=== PATIENT | female | born 1935 | race Caucasian/White ===

== ENCOUNTER 2018-06-01 00:03 | Inpatient (IN) | payer MEDICARE, BC ==
[~2018-06-01] VITALS: Ht 157.5 cm; Wt 44.9 kg
[2018-06-01] MEDS ORDERED: IV NORMAL SALINE 1000 ML BAG IV ONE (00:30)
[2018-06-01] MEDS ORDERED: BIMA2.5D5 EACHEYE (00:36)
[2018-06-01] MEDS ORDERED: CYAN10009 PO (00:36)
[2018-06-01] MEDS ORDERED: LEVO50TA66 PO (00:36)
[2018-06-01] MEDS ORDERED: MULT1TAB73 PO (00:36)
[2018-06-01] MEDS ORDERED: CHOL10002 PO (00:36)
[2018-06-01] MEDS ORDERED: OMEG-166 PO (00:36)
[2018-06-01] MEDS ORDERED: BRIN10DR EACHEYE (00:36)
[2018-06-01] MEDS ORDERED: CALCIUM PLUS D PO (00:36)
--- NOTE | 2018-06-01 00:45 | NUR ---
Pt. BIB [facility] for near syncopal episode w/ AMS at the time of episode, presents w/ resolved 01/16 R side abdominal pain, A/Ox3, abd. s/r/nd/nt, BS active x4, family at bedside w/ pt., in for MSE, denies N/V/D/F/C/CP/GREGORIO, hx of apendicitis, Addendum: 06/01/18 at 0052 by BKAHMET hx of apendectomy
--- NOTE | 2018-06-01 00:53 | NUR ---
Pt. taken off unit for CT
[2018-06-01 00:54] LABS: BASOPHILS # (AUTO) 0.2 K/uL (0.0-8.0); EOSINOPHILS # (AUTO) 0.1 K/uL (0.0-0.7); EOSINOPHILS % (AUTO) 0.5 % (0.0-7.0); MONOCYTES # (AUTO) 1.1 K/uL (2.0-10.0)
[2018-06-01 00:55] LABS: BASOPHILS % (AUTO) 1.3 % (0.0-2.0); HEMATOCRIT 22.6 % (31.2-41.9); HEMOGLOBIN 7.5 g/dL (10.9-14.3); LYMPHOCYTES # (AUTO) 2.1 K/uL (20.0-40.0); LYMPHOCYTES % (AUTO) 13.7 % (20.5-51.5); MEAN CORPUSCULAR HGB CONC 33 g/dL (32.3-35.6); MEAN CORPUSCULAR VOLUME 87.6 fL (75.5-95.3); MONOCYTES % (AUTO) 6.8 % (0.0-11.0); NEUTROPHILS # (AUTO) 12.2 K/uL (1.8-8.9); NEUTROPHILS % (AUTO) 77.7 % (38.5-71.5); PLATELET COUNT (AUTO) 642 K/uL (179-408); RED BLOOD CELL COUNT(AUTO) 2.58 MIL/uL (3.63-4.92); WHITE BLOOD COUNT (AUTO) 15.7 K/uL (3.8-11.8)
[2018-06-01 01:05] LABS: CARBON DIOXIDE 22 mmol/L (21-32); CHLORIDE 102 mmol/L (98-107); CREATININE 1.4 mg/dL (0.6-1.3); GLUCOSE 155 mg/dL (74-106); POTASSIUM 3.4 mmol/L (3.5-5.1); UREA NITROGEN, BLOOD 18 mg/dL (7-18)
[2018-06-01 01:10] LABS: ALANINE AMINOTRANSFERASE 87 U/L (14-59); ALKALINE PHOSPHATASE 762 U/L (50-136); ASPARTATE AMINOTRANSFERASE 85 U/L (15-37); BILIRUBIN,DIRECT 0.1 mg/dL (0.0-0.2); BILIRUBIN,TOTAL 0.3 mg/dL (0.2-1.0); LIPASE 293 U/L (73-393); TOTAL PROTEIN, SERUM 6.8 g/dL (6.4-8.2)
[2018-06-01 01:25] LABS: *BILIRUBIN,URIN NEGATIVE (NEGATIVE); *BLOOD, URINE Trace-lysed (NEGATIVE); *CLARITY,URINE CLEAR (CLEAR); *COLOR,URINE YELLOW (YELLOW); *KETONES,URINE NEGATIVE (NEGATIVE); *PROTEIN,URINE TRACE (NEGATIVE); *UROBILINOGEN,URINE 0.2 E.U./dl (NORMAL); LEUKOCYTE ESTERASE ,URINE TRACE (NEGATIVE); NITRITE, URINE NEGATIVE (NEGATIVE); UGLUCOSE NEGATIVE (NEGATIVE)
[2018-06-01 01:32] LABS: BACTERIA,URINE MODERATE /HPF (NONE SEEN); SQUAMOUS EPITHELIAL CELL,UR MANY /HPF (NONE SEEN)
--- NOTE | 2018-06-01 01:46 | NUR ---
Per [facility] Front Desk Agent no bed available for admission upstairs until 0600, pt. resting in bed, no acute distress,
--- NOTE | 2018-06-01 02:24 | NUR ---
NEHEMIAH GOETZ on phone with Dr Lozano from [employer] for panel call.
[2018-06-01] MEDS ORDERED: PIPERACILLIN SODIUM/TAZOBACTAM 3.375 G in IV DEXTROSE 5% 50 ML IV ONE (02:30)
[2018-06-01] MEDS ORDERED: PIPERACILLIN/TAZOBACTAM/D5W 50 ML IV ONE (02:47)
--- NOTE | 2018-06-01 03:03 | NUR ---
Left wrist IV removed due to pain/redness to site.
--- NOTE | 2018-06-01 04:35 | NUR ---
Pt. resting in bed, no acute distress, VSS, will continue to monitor, all needs met,
--- NOTE | 2018-06-01 05:40 | NUR ---
Spoke to Chani nuclear waste process operator, per Chani " The patient can be taken upstairs to inpatient unit, and bedside report can be given to the inpatient RN".
--- NOTE | 2018-06-01 05:51 | NUR ---
Report given to inpatient RnDean. Pt. admitted to Telemetry , under care of Dr. Sun. Dx: Near Syncope. Belongs List completed
[2018-06-01 06:28] VITALS: BP 153/62
[2018-06-01 11:12] VITALS: BP 130/58
[2018-06-01] MEDS ORDERED: PIPERACILLIN/TAZOBACTAM/D5W 3.375 G in PREMIXED 1 EACH IV SCH (12:00)
[2018-06-01 12:36] LABS: IRON, SERUM 19 ug/dL (50-175)
[2018-06-01] MEDS ORDERED: SWABABLE VALVE TRANSFER SET EA MC ONE (12:58)
[2018-06-01] MEDS ORDERED: IV NORMAL SALINE 250 ML IV ONE (12:58)
[2018-06-01] MEDS ORDERED: IOHEXOL 300MG/ML 100 ML INFUS..BTL ONE (12:58)
[2018-06-01] MEDS: PIPERACILLIN/TAZOBACTAM/D5W 3.375 G in PREMIXED 1 EACH IV SCH ×2 (14:00→22:24)
[2018-06-01] MEDS: IV D5/ 0.9% NACL 1,000 ML IV PRN (14:19)
[2018-06-01 15:04] VITALS: BP 153/60
[2018-06-01] MEDS: POTASSIUM CHLORIDE 50 ML IV SCH ×2 (16:16→17:04)
--- NOTE | 2018-06-01 19:30 | NUR ---
RECEIVED PATIENT IN BED ALERT ORIENTED, NO SOB NO CHEST PAIN, TELE MONITOR SINUS RYHTHM AT THIS TIME. PATIENT HAS PAIN CAUSING ELEVATED BP WILL MEDICATE FOR PAIN.
[2018-06-01] MEDS: KETOROLAC TROMETHAMINE 15 MG INJ IVP PRN (19:38)
[2018-06-01 19:40] VITALS: BP 167/70
[2018-06-01 19:49] VITALS: BP 148/63
[2018-06-01 20:00] VITALS: BP 148/63
--- NOTE | 2018-06-01 20:00 | NUR ---
PATIENT PICKED UP BY [facility] FOR MRI TEST AT [facility]. IN FAIR STABLE CONDITION.
--- NOTE | 2018-06-01 21:45 | NUR ---
PATIENT IS BACK FROM MRI TEST IN FAIR STABLE CONDITION. DAUGHTER AT BEDSIDE.
[2018-06-01] MEDS ORDERED: BIMATOPROST 0.01% OPHT DROP 2.5 ML BOTTLE EACHEYE SCH (23:15)
--- NOTE | 2018-06-01 23:20 | NUR ---
DAUGHTER REQUEST TO CONT ALL PO HOME MEDICATIONS, DR. BREN HUANG OKEYED ONLY THE EYE GTTS MEDICATIONS, ALL PO MEDS ON HOLD AT THIS TIME, PATIENT NPO.
[2018-06-02] VITALS (11 sets, daily range): BP systolic 120–170; BP diastolic 44–87
[2018-06-02] MEDS: BRINZOLAMIDE 1% OPHT DROP 10 ML BOTTLE EACHEYE SCH ×2 (00:10→08:33)
[2018-06-02] MEDS: PIPERACILLIN/TAZOBACTAM/D5W 3.375 G in PREMIXED 1 EACH IV SCH ×3 (05:34→21:23)
[2018-06-02] MEDS: IV D5/ 0.9% NACL 1,000 ML IV PRN ×2 (06:06→11:26)
--- NOTE | 2018-06-02 06:24 | NUR ---
PATIENT SLEPT MOST OF THE NIGHT NO SOB NO CHEST PAIN NOTED, ON TELE MONITOR SINUS RHYTHM ON 70'S, NO FURTHER COMPLAIN OF PAIN AT THIS TIME, REMAINS NPO AT THIS TIME. PATIENT WENT FOR NUCLEAR MEDICINE TEST, KEPT CLEAN AND DRY, TURN REPOSITION, CALL LIGHT WITHIN REACH.
[2018-06-02 06:31] LABS: BASOPHILS # (AUTO) 0.1 K/uL (0.0-8.0); BASOPHILS % (AUTO) 0.5 % (0.0-2.0); EOSINOPHILS # (AUTO) 0.2 K/uL (0.0-0.7); HEMATOCRIT 21.7 % (31.2-41.9); LYMPHOCYTES # (AUTO) 2.6 K/uL (20.0-40.0); LYMPHOCYTES % (AUTO) 21.4 % (20.5-51.5); MEAN CORPUSCULAR HEMOGLOBIN 29.4 uug (24.7-32.8); MEAN CORPUSCULAR HGB CONC 33 g/dL (32.3-35.6); MEAN CORPUSCULAR VOLUME 90.2 fL (75.5-95.3); MONOCYTES # (AUTO) 0.9 K/uL (2.0-10.0); MONOCYTES % (AUTO) 7.6 % (0.0-11.0); NEUTROPHILS # (AUTO) 8.2 K/uL (1.8-8.9); NEUTROPHILS % (AUTO) 68.5 % (38.5-71.5); PLATELET COUNT (AUTO) 640 K/uL (179-408)
[2018-06-02 06:37] LABS: RED BLOOD CELL COUNT(AUTO) 2.41 MIL/uL (3.63-4.92)
[2018-06-02 06:38] LABS: HEMOGLOBIN 7.1 g/dL (10.9-14.3)
[2018-06-02 06:49] LABS: ALANINE AMINOTRANSFERASE 46 U/L (14-59); ALKALINE PHOSPHATASE 571 U/L (50-136); ASPARTATE AMINOTRANSFERASE 24 U/L (15-37); BILIRUBIN,TOTAL 0.5 mg/dL (0.2-1.0); CARBON DIOXIDE 25 mmol/L (21-32); CHLORIDE 106 mmol/L (98-107); CREATININE 1.3 mg/dL (0.6-1.3); GLUCOSE 96 mg/dL (74-106); MAGNESIUM 1.8 mg/dL (1.8-2.4); PHOSPHOROUS 4.3 mg/dL (2.5-4.9); POTASSIUM 4.1 mmol/L (3.5-5.1); TOTAL PROTEIN, SERUM 6.3 g/dL (6.4-8.2); UREA NITROGEN, BLOOD 14 mg/dL (7-18)
--- NOTE | 2018-06-02 07:15 | NUR ---
PATIENT ALBUMIN LEVEL 1.5 CALLED [facility] AND WILIAM CERNA IS RECORD SEARCHER, WAITING FOR RESPONSE, ENDORSED TO NEXT SHIFT.
[2018-06-02 07:29] LABS: FERRITIN 1403 ng/mL (8-252)
--- NOTE | 2018-06-02 07:30 | NUR ---
dr panchito riggs called back regarding low albumin and low hgb no new orders
[2018-06-02] MEDS ORDERED: EPOETIN ALFA 20,000 UNIT/ML ML SQ ONE (10:45)
[2018-06-02] MEDS ORDERED: EPOETIN ALFA 10,000 UNITS/ML VIAL SQ ONE (11:45)
--- NOTE | 2018-06-02 12:00 | NUR ---
SEEN BY DMETRY NOTED LOW HH AND LOW ALBUMIN WITH ORDERS. WILL GIVE EPOGEN THEN CHECK HH AT 1800
--- NOTE | 2018-06-02 13:00 | NUR ---
seen by dr banegas for cardio follow-up and manager multicultural RE: RENAL CELL CA SEE NOTES
[2018-06-02] MEDS: LISINOPRIL 5 MG TABLET PO SCH (13:18)
[2018-06-02] MEDS: DORZOLAMIDE 2% OPHT DROP 10 ML BOTTLE EACHEYE SCH ×2 (13:18→17:23)
--- NOTE | 2018-06-02 15:41 | NUR ---
DAUGHTER AT BEDSIDE SPOKE WITH ALL MD"S ON DUTY, VERY SATISFIED WITH CARE. AGREED BLOOD TRANSFUSION PLAN PENDING HH RESULTS. STARTED ON REGULAR DIET PT TOLERATED WELL
--- NOTE | 2018-06-02 19:20 | NUR ---
Received patient lying in bed. AAOX4. In no acute distress. Denies any pain or SOB at this time. NSR on tele at 86/min. IV site on LFA intact and patent. IVF infusing. Son at bedside. Needs assessed and attended to. Safety measure initiated and call murillo within reach.
[2018-06-02] MEDS: LATANOPROST OPHT DROP 2.5 ML BOTTLE OP SCH (20:23)
--- NOTE | 2018-06-02 21:22 | NUR ---
Place another IV site on right FA #20 gauge.
--- NOTE | 2018-06-02 23:00 | NUR ---
Electrical Design Engineer tried to draw blood x2 but no success, will try again in AM per Luann.
[2018-06-02 23:18] LABS: *OCCULT BLOOD STOOL NEGATIVE (NEGATIVE)
[2018-06-03] VITALS (8 sets, daily range): BP systolic 132–156; BP diastolic 49–66
[2018-06-03] MEDS: PIPERACILLIN/TAZOBACTAM/D5W 3.375 G in PREMIXED 1 EACH IV SCH ×3 (05:08→21:09)
[2018-06-03] MEDS: LEVOTHYROXINE SODIUM 50 MCG TABLET PO SCH (06:02)
--- NOTE | 2018-06-03 06:20 | NUR ---
AAOX4. In no acute distress. NSR on tele at 79/min. IV site on RFA and LFA intact and patent. IVF infusing. No adverse reaction noted from IV ABX. Needs assessed and attended to. Safety measure maintained and call murillo within reach.
[2018-06-03 06:49] LABS: BASOPHILS # (AUTO) 0.1 K/uL (0.0-8.0); EOSINOPHILS # (AUTO) 0.2 K/uL (0.0-0.7); LYMPHOCYTES # (AUTO) 3.8 K/uL (20.0-40.0); MEAN CORPUSCULAR VOLUME 90.5 fL (75.5-95.3); MONOCYTES # (AUTO) 0.9 K/uL (2.0-10.0); MONOCYTES % (AUTO) 7.5 % (0.0-11.0)
[2018-06-03 06:52] LABS: CARBON DIOXIDE 23 mmol/L (21-32); CHLORIDE 105 mmol/L (98-107); CREATININE 1.3 mg/dL (0.6-1.3); GLUCOSE 99 mg/dL (74-106); POTASSIUM 3.7 mmol/L (3.5-5.1); UREA NITROGEN, BLOOD 16 mg/dL (7-18)
[2018-06-03 06:58] LABS: BASOPHILS % (AUTO) 1.2 % (0.0-2.0); EOSINOPHILS % (AUTO) 1.5 % (0.0-7.0); LYMPHOCYTES % (AUTO) 30.8 % (20.5-51.5); MEAN CORPUSCULAR HEMOGLOBIN 29.7 uug (24.7-32.8); MEAN CORPUSCULAR HGB CONC 33 g/dL (32.3-35.6); NEUTROPHILS # (AUTO) 7.3 K/uL (1.8-8.9); PLATELET COUNT (AUTO) 574 K/uL (179-408); WHITE BLOOD COUNT (AUTO) 12.4 K/uL (3.8-11.8)
[2018-06-03 07:05] LABS: RED BLOOD CELL COUNT(AUTO) 2.29 MIL/uL (3.63-4.92)
[2018-06-03 07:07] LABS: HEMATOCRIT 20.7 % (31.2-41.9); HEMOGLOBIN 6.8 g/dL (10.9-14.3)
[2018-06-03] MEDS: MULTIVITAMINS,THERAPEUTIC TABLET PO SCH (08:49)
[2018-06-03] MEDS: CHOLECALCIFEROL 1,000 UNIT TABLET PO SCH (08:49)
[2018-06-03] MEDS: OMEGA-3 FATTY ACIDS/FISH OIL CAPSULE PO SCH (08:49)
[2018-06-03] MEDS: CYANOCOBALAMIN 1,000 MCG TABLET PO SCH (08:49)
[2018-06-03] MEDS: LISINOPRIL 5 MG TABLET PO SCH ×2 (08:50→09:02)
[2018-06-03] MEDS: DORZOLAMIDE 2% OPHT DROP 10 ML BOTTLE EACHEYE SCH ×3 (08:52→17:05)
[2018-06-03] MEDS: IV D5/ 0.9% NACL 1,000 ML IV PRN (08:57)
[2018-06-03] MEDS ORDERED: Medication Not On Formulary EA (Multivitamins (Multivitamin) 1 EACH) PO SCH (09:00)
--- NOTE | 2018-06-03 09:10 | NUR ---
PATIENT IS AX0 X4, PATIENT SIGNED CONSENT FOR 1 UNIT OF BLOOD TRANSFUSION.
[2018-06-03 10:12] LABS: LYMPHOCYTES % (MANUAL) 27 % (20-40); MONOCYTES % (MANUAL) 7 % (2-10); MYELOCYTES % 1 % (0-0); NEUTROPHILS % (MANUAL) 65 % (42-75)
--- NOTE | 2018-06-03 10:15 | NUR ---
BLOOD TRANSFUSION STARTED ON R FOREARM, BLOOD TRANSFUSION PROTOCOL FOLLOWED. SECOND RN WITNESSED.
--- NOTE | 2018-06-03 10:30 | NUR ---
ASSESSED PATIENT AFTER INITIATING BLOOD TRANSFUSION. 15 MINUTE VITAL CHECK, WNL. PATIENT HAS NO S/S OF ADVERSE REACTION TO PRODUCT. WILL CONTINUE TO MONITOR HOURLY UNTIL 1 UNIT OF BLOOD IS FULLY INFUSED.
--- NOTE | 2018-06-03 11:30 | NUR ---
VITAL CHECK 1 HOUR AFTER INITIATING BLOOD TRANSFUSION. PATIENT IS A+O, NO ADVERSE SIGNS OR SYMPTOMS NOTED.
--- NOTE | 2018-06-03 13:07 | NUR ---
PATIENT HAS RECEIVED 1 UNIT OF BLOOD, FULLY INFUSED. REASSESSED VITAL SIGNS, WNL. PATIENT IS A+O X4. NO ADVERSE REACTION NOTED.
--- NOTE | 2018-06-03 19:20 | NUR ---
Received patient lying in bed. AAOX4. In no acute distress. Denies any pain or SOB at this time. IV site on RFA and LFA intact and patent. IVF infusing on LFA. Daughter Grisel at bedside. Needs assessed and attended to. Safety measure initiated and call murillo within reach.
[2018-06-03] MEDS: LATANOPROST OPHT DROP 2.5 ML BOTTLE OP SCH (20:31)
[2018-06-04] VITALS (8 sets, daily range): BP systolic 136–177; BP diastolic 61–76
[2018-06-04] MEDS: IV D5/ 0.9% NACL 1,000 ML IV PRN ×2 (02:27→16:59)
[2018-06-04] MEDS: PIPERACILLIN/TAZOBACTAM/D5W 3.375 G in PREMIXED 1 EACH IV SCH ×3 (05:10→21:02)
[2018-06-04] MEDS: LEVOTHYROXINE SODIUM 50 MCG TABLET PO SCH (06:02)
--- NOTE | 2018-06-04 06:09 | NUR ---
Slept well last night. Remains AAOX4. In no acute distress. IV site on RFA and LFA remains intact and patent. IVF infusing. No adverse reaction noted from IV ABX. Needs assessed and attended to. Safety measure maintained and call murillo within reach.
[2018-06-04 06:38] LABS: BASOPHILS # (AUTO) 0.1 K/uL (0.0-8.0); BASOPHILS % (AUTO) 0.5 % (0.0-2.0); EOSINOPHILS # (AUTO) 0.3 K/uL (0.0-0.7); HEMATOCRIT 22.8 % (31.2-41.9); LYMPHOCYTES % (AUTO) 29.8 % (20.5-51.5); MEAN CORPUSCULAR HEMOGLOBIN 28.8 uug (24.7-32.8); MEAN CORPUSCULAR HGB CONC 32 g/dL (32.3-35.6); MEAN CORPUSCULAR VOLUME 89.2 fL (75.5-95.3); MONOCYTES % (AUTO) 7.3 % (0.0-11.0); NEUTROPHILS # (AUTO) 8.1 K/uL (1.8-8.9); NEUTROPHILS % (AUTO) 60.4 % (38.5-71.5); PLATELET COUNT (AUTO) 527 K/uL (179-408); RED BLOOD CELL COUNT(AUTO) 2.56 MIL/uL (3.63-4.92); WHITE BLOOD COUNT (AUTO) 13.4 K/uL (3.8-11.8)
[2018-06-04 06:44] LABS: HEMOGLOBIN 7.4 g/dL (10.9-14.3)
[2018-06-04 06:50] LABS: CARBON DIOXIDE 20 mmol/L (21-32); CHLORIDE 110 mmol/L (98-107); CREATININE 1.3 mg/dL (0.6-1.3); UREA NITROGEN, BLOOD 12 mg/dL (7-18)
[2018-06-04 06:51] LABS: GLUCOSE 361 mg/dL (74-106)
--- NOTE | 2018-06-04 06:53 | NUR ---
Call from life insurance actuary Yovani and reported critical lab value for glucose 361. Endorse to Day shift nurse Dariana.
[2018-06-04 07:09] LABS: A/G RATIO 0.6 (0.7-1.7); ALPHA-1-GLOBULIN 0.5 g/dL (0.0-0.4); ALPHA-2-GLOBULIN 1.3 g/dL (0.4-1.0); BETA GLOBULIN 0.9 g/dL (0.7-1.3); GAMMA GLOBULIN 0.8 g/dL (0.4-1.8); GLOBULIN, TOTAL 3.6 g/dL (2.2-3.9); M-SPIKE Not Observed g/dL (Not Observed)
[2018-06-04] MEDS: MULTIVITAMINS,THERAPEUTIC TABLET PO SCH (08:04)
[2018-06-04] MEDS: OMEGA-3 FATTY ACIDS/FISH OIL CAPSULE PO SCH (08:04)
[2018-06-04] MEDS: LISINOPRIL 5 MG TABLET PO SCH (08:04)
[2018-06-04] MEDS: CHOLECALCIFEROL 1,000 UNIT TABLET PO SCH (08:04)
[2018-06-04] MEDS: CYANOCOBALAMIN 1,000 MCG TABLET PO SCH (08:04)
[2018-06-04] MEDS: DORZOLAMIDE 2% OPHT DROP 10 ML BOTTLE EACHEYE SCH ×3 (08:17→16:24)
[2018-06-04] MEDS ORDERED: DEXTROSE 50% 50 ML DISP.SYRIN IV PRN (10:00)
[2018-06-04] MEDS ORDERED: INSULIN REGULAR, HUMAN 300 UNIT/3 ML VIAL SQ PRN (10:00)
[2018-06-04 11:06] LABS: IMMUNOGLOBULIN A, SERUM 106 mg/dL (64-422); IMMUNOGLOBULIN M, SERUM 35 mg/dL (26-217)
[2018-06-04] MEDS: BLOOD SUGAR DIAGNOSTIC 1 EACH STRIP VI SCH ×3 (11:13→20:51)
[2018-06-04] MEDS: POTASSIUM CHLORIDE 20 MEQ TAB.PRT.SR PO SCH ×3 (12:03→20:39)
--- NOTE | 2018-06-04 15:24 | NUR ---
one unit prbc given per md orders.no ar noted.
[2018-06-04] MEDS: LATANOPROST OPHT DROP 2.5 ML BOTTLE OP SCH (20:39)
[2018-06-04] MEDS ORDERED: CLONIDINE HCL 0.2 MG TABLET PO ONE (21:45)
[2018-06-04] MEDS ORDERED: CLONIDINE HCL 0.1 MG TABLET PO PRN (21:45)
[2018-06-04] MEDS ORDERED: IV NS 1000 ML 1,000 ML IV SCH (22:00)
[2018-06-04] MEDS: KETOROLAC TROMETHAMINE 15 MG INJ IVP PRN (22:58)
[2018-06-04] MEDS ORDERED: hydrALAZINE HCL 10 MG TABLET PO ONE (23:15)
--- NOTE | 2018-06-05 01:09 | NUR ---
Patients BP was 183/78 and HR 85. Made call to MD with orders for Catapres 0.2mg x1 and Hydralazine 10mg x1 now and 0.1 Catapres Q6H PRN for SBP >160. Also to discontinue D5ns.
[2018-06-05 06:27] VITALS: BP 143/48
[2018-06-05 06:53] LABS: CARBON DIOXIDE 21 mmol/L (21-32); CHLORIDE 111 mmol/L (98-107); CREATININE 1.4 mg/dL (0.6-1.3); GLUCOSE 74 mg/dL (74-106); POTASSIUM 4.4 mmol/L (3.5-5.1); UREA NITROGEN, BLOOD 14 mg/dL (7-18)
[2018-06-05] MEDS: BLOOD SUGAR DIAGNOSTIC 1 EACH STRIP VI SCH ×2 (06:55→10:51)
[2018-06-05] MEDS: LEVOTHYROXINE SODIUM 50 MCG TABLET PO SCH (06:55)
[2018-06-05 07:06] LABS: BASOPHILS # (AUTO) 0.1 K/uL (0.0-8.0); BASOPHILS % (AUTO) 0.7 % (0.0-2.0); EOSINOPHILS # (AUTO) 0.4 K/uL (0.0-0.7); EOSINOPHILS % (AUTO) 2.6 % (0.0-7.0); MEAN CORPUSCULAR HEMOGLOBIN 29.7 uug (24.7-32.8); MEAN CORPUSCULAR HGB CONC 33 g/dL (32.3-35.6); MEAN CORPUSCULAR VOLUME 90.6 fL (75.5-95.3); MONOCYTES # (AUTO) 1.1 K/uL (2.0-10.0); MONOCYTES % (AUTO) 8.1 % (0.0-11.0); NEUTROPHILS # (AUTO) 8.3 K/uL (1.8-8.9); NEUTROPHILS % (AUTO) 59.6 % (38.5-71.5); PLATELET COUNT (AUTO) 516 K/uL (179-408); RED BLOOD CELL COUNT(AUTO) 3.35 MIL/uL (3.63-4.92)
[2018-06-05 07:33] LABS: HEMATOCRIT 30.3 % (31.2-41.9); HEMOGLOBIN 9.9 g/dL (10.9-14.3)
[2018-06-05] MEDS: CHOLECALCIFEROL 1,000 UNIT TABLET PO SCH (08:14)
[2018-06-05] MEDS: LISINOPRIL 5 MG TABLET PO SCH (08:14)
[2018-06-05] MEDS: OMEGA-3 FATTY ACIDS/FISH OIL CAPSULE PO SCH (08:14)
[2018-06-05] MEDS: MULTIVITAMINS,THERAPEUTIC TABLET PO SCH (08:14)
[2018-06-05] MEDS: CYANOCOBALAMIN 1,000 MCG TABLET PO SCH (08:14)
[2018-06-05] MEDS: DORZOLAMIDE 2% OPHT DROP 10 ML BOTTLE EACHEYE SCH ×2 (08:50→12:10)
[2018-06-05] MEDS ORDERED: [UNRECOGNIZED DRUG - OTHER] PO SCH ×2 (09:00)
[2018-06-05] MEDS ORDERED: AMOXICILLIN-CLAVUL 500-125MG TABLET PO SCH (09:15)
[2018-06-05] MEDS ORDERED: INFLUENZA VACCINE 2018-2019 0.5 ML DISP.SYRIN IM ONE (10:08)
[2018-06-05] MEDS ORDERED: AMOX-427 PO (10:10)
[2018-06-05 11:19] VITALS: BP 127/47
--- NOTE | 2018-06-05 13:00 | NUR ---
d/c orders received noted and carried out,d/c heplock per md orders,d/c instruction and education given to the pt,pt left the facility via private car in stable condition
[2018-06-08 04:05] LABS: *IMMUNOGLOBULIN G, SERUM 1081 mg/dL (700-1600)
== END 2018-06-05 13:00 | disposition home health service (06) | DRG 686 ==
LOC: EDBD 00:06 → ER 00:06 → TELE 05:42 → MED 06-03 13:20
PROVIDERS: ADMIT Internal Medicine
PROC: 30233N1 Transfusion of Nonautologous Red Blood Cells into Peripheral Vein, Percutaneous Approach (ICD-10-PCS; principal; 2018-06-03)
DX: C64.2 Malignant neoplasm of left kidney, except renal pelvis (principal); E43 Unspecified severe protein-calorie malnutrition; M48.56XA Collapsed vertebra, not elsewhere classified, lumbar region, initial encounter for fracture; D68.69 Other thrombophilia; J90 Pleural effusion, not elsewhere classified; Z68.1 Body mass index [BMI] 19.9 or less, adult; J98.11 Atelectasis; N39.0 Urinary tract infection, site not specified; D50.9 Iron deficiency anemia, unspecified; I08.1 Rheumatic disorders of both mitral and tricuspid valves; E03.9 Hypothyroidism, unspecified; K57.30 Diverticulosis of large intestine without perforation or abscess without bleeding; Z90.49 Acquired absence of other specified parts of digestive tract; M48.07 Spinal stenosis, lumbosacral region; M48.061 Spinal stenosis, lumbar region without neurogenic claudication; E87.6 Hypokalemia; I51.7 Cardiomegaly; M47.816 Spondylosis without myelopathy or radiculopathy, lumbar region; E53.8 Deficiency of other specified B group vitamins; R74.0 Nonspecific elevation of levels of transaminase and lactic acid dehydrogenase [LDH]; D47.3 Essential (hemorrhagic) thrombocythemia; M85.80 Other specified disorders of bone density and structure, unspecified site; R16.0 Hepatomegaly, not elsewhere classified; G89.3 Neoplasm related pain (acute) (chronic); R55 Syncope and collapse
CPT/HCPCS: 36415; 70030-TC; 70450; 71045; 71250; 72148; 74181; 78445; 82747; 82784; 83550; 83605; 83615; 83690; 83735; 84100; 84155; 84165; 84443; 85014; 85025; 85730; 86334; 86850; 86900; 86901; 86920; 87040; 87086; 90686; 93005; 93307; 97110; 97116; 97530; A4663; A9537; G0378; J0885; J1815; J1885; J2543; J3480; J3490; J7030; J7040; J7042; J7050; P9016-BL; P9021; Q9967

== ENCOUNTER 2018-06-16 22:26 | Inpatient (IN) | payer MEDICARE, BC ==
[~2018-06-16] VITALS: Ht 157.5 cm; Wt 45.5 kg
[~2018-06-16 22:26] MED LIST: AMOX-427 PO; BIMA2.5D5 EACHEYE; BRIN10DR EACHEYE; CALCIUM PLUS D PO; CHOL10002 PO; CYAN10009 PO; LEVO50TA66 PO; MULT1TAB73 PO; OMEG-166 PO
--- NOTE | 2018-06-16 22:30 | NUR ---
PT BIB [facility], C/C AMS. PT IS A/OX1, UNABLE TO ANSWER QUESTIONS ADEQUATELY. PER PARAMEDICS, PT TOOK A NEW PRESCRIPTION OF TRAMADOL AND BACLOFEN AND WHEN FAMILY GOT HOME, NOTICED SHE WAS "SPACING OUT". PT IS A POOR HISTORIAN, UNABLE TO RECALL HOW MUCH OF EACH MEDICATION SHE TOOK. PT PRESENTS W/ HTN 206/100, ER MD AWARE. PT DOES NOT APPEAR TO BE IN ANY APPARENT DISTRESS AT THIS TIME. DECK SUPERVISOR EQUAL BILATERAL UE, SMILE EQUAL, PERRLA.
--- NOTE | 2018-06-16 22:56 | NUR ---
NEHEMIAH GOETZ AT BEDSIDE FOR MSE. PT TAKEN TO RADIOLOGY FOR CT SCAN.
--- NOTE | 2018-06-16 23:20 | NUR ---
PT BACK IN ER FROM RADIOLOGY.
[2018-06-16 23:42] LABS: BASOPHILS # (AUTO) 0.2 K/uL (0.0-8.0); BASOPHILS % (AUTO) 1.2 % (0.0-2.0); EOSINOPHILS # (AUTO) 0.1 K/uL (0.0-0.7); EOSINOPHILS % (AUTO) 0.5 % (0.0-7.0); HEMOGLOBIN 10.4 g/dL (10.9-14.3); LYMPHOCYTES # (AUTO) 4.2 K/uL (20.0-40.0); LYMPHOCYTES % (AUTO) 27.9 % (20.5-51.5); MEAN CORPUSCULAR HEMOGLOBIN 29.2 uug (24.7-32.8); MEAN CORPUSCULAR HGB CONC 33 g/dL (32.3-35.6); MEAN CORPUSCULAR VOLUME 89.4 fL (75.5-95.3); MONOCYTES # (AUTO) 0.9 K/uL (2.0-10.0); NEUTROPHILS # (AUTO) 9.6 K/uL (1.8-8.9); NEUTROPHILS % (AUTO) 64.4 % (38.5-71.5); PLATELET COUNT (AUTO) 651 K/uL (179-408); RED BLOOD CELL COUNT(AUTO) 3.58 MIL/uL (3.63-4.92); WHITE BLOOD COUNT (AUTO) 14.9 K/uL (3.8-11.8)
[2018-06-17 00:08] LABS: ETHANOL < 3 MG/DL (0-0)
[2018-06-17 00:09] LABS: CARBON DIOXIDE 25 mmol/L (21-32); CHLORIDE 102 mmol/L (98-107); GLUCOSE 111 mg/dL (74-106); POTASSIUM 3.4 mmol/L (3.5-5.1); UREA NITROGEN, BLOOD 18 mg/dL (7-18)
[2018-06-17 00:10] LABS: THYROID STIMULATING HORMONE 4.617 mIU/mL (0.358-3.740)
[2018-06-17 00:13] LABS: ALANINE AMINOTRANSFERASE 27 U/L (14-59); ALKALINE PHOSPHATASE 641 U/L (50-136); ASPARTATE AMINOTRANSFERASE 17 U/L (15-37); BILIRUBIN,DIRECT 0.2 mg/dL (0.0-0.2); BILIRUBIN,TOTAL 0.5 mg/dL (0.2-1.0)
[2018-06-17 00:16] LABS: *BILIRUBIN,URIN NEGATIVE (NEGATIVE); *BLOOD, URINE Trace-intact (NEGATIVE); *CLARITY,URINE CLEAR (CLEAR); *COLOR,URINE YELLOW (YELLOW); *KETONES,URINE NEGATIVE (NEGATIVE); *UROBILINOGEN,URINE 0.2 E.U./dl (NORMAL); LEUKOCYTE ESTERASE ,URINE NEGATIVE (NEGATIVE); NITRITE, URINE NEGATIVE (NEGATIVE); UGLUCOSE NEGATIVE (NEGATIVE)
[2018-06-17 00:18] LABS: ACETAMINOPHEN < 2.0 ug/mL (10-30)
--- NOTE | 2018-06-17 00:30 | NUR ---
Unable to reconcile medication at this time due to unavailable information
[2018-06-17 00:34] LABS: *AMPHETAMINE, URINE NEGATIVE (NEGATIVE); *BARBITURATE, URINE NEGATIVE (NEGATIVE); *CANNABINOID, URINE NEGATIVE (NEGATIVE); *COCCAINE, URINE NEGATIVE (NEGATIVE); *OPIATE, URINE NEGATIVE (NEGATIVE); *PHENCYCLIDINE SCREEN,URINE NEGATIVE (NEGATIVE)
--- NOTE | 2018-06-17 00:34 | NUR ---
ER SPEAKING W/ DR. HUANG RE PT'S ADMISSION.
[2018-06-17 00:35] LABS: BACTERIA,URINE NONE SEEN /HPF (NONE SEEN); SQUAMOUS EPITHELIAL CELL,UR FEW /HPF (NONE SEEN); WBC,URINE 0-3 /HPF (0-3)
[2018-06-17] MEDS ORDERED: hydrALAZINE HCL 20 MG/1 ML VIAL ONE (00:55)
[2018-06-17] MEDS ORDERED: ONDANSETRON 4 MG/2 ML VIAL IV PRN (01:00)
[2018-06-17] MEDS ORDERED: Z GUARD REMEDY PASTE 57 GM TUBE TOP PRN (01:00)
[2018-06-17] MEDS ORDERED: hydrALAZINE HCL 20 MG/1 ML VIAL IV ONE (01:00)
[2018-06-17] MEDS ORDERED: ACETAMINOPHEN 325 MG TABLET PO PRN (01:00)
[2018-06-17] MEDS ORDERED: MAGNESIUM HYDROXIDE 30 ML LIQUID UDC PO PRN (01:00)
--- NOTE | 2018-06-17 01:24 | NUR ---
GAVE ADMITTING REPORT TO AMANDA CARR.
--- NOTE | 2018-06-17 01:54 | NUR ---
Pt. admitted to TELE 208, under care of Dr. HUANG. Belongs List completed
--- NOTE | 2018-06-17 02:00 | NUR ---
Admitted a 83yrs. old female with Diagnosis of AMS. Patient AAOx2, forgetful. Able to answer some simple questions. Accompanied by daughter Linda and Son Dimas and answered some of the questions for this nurse. Patient on no acute distress. Denies any pain or SOB at this time. NSR on tele at 84/min. IV site on left wrist intact and patent. Bonner catheter intact and draining via gravity. Routine admission care done. Plan of care initiated. Safety measure initiated and call murillo within reach.
[2018-06-17 02:15] VITALS: BP 147/58
[2018-06-17 04:00] VITALS: BP 164/78
[2018-06-17 05:56] LABS: BASOPHILS # (AUTO) 0.1 K/uL (0.0-8.0); BASOPHILS % (AUTO) 0.6 % (0.0-2.0); EOSINOPHILS % (AUTO) 0.1 % (0.0-7.0); HEMATOCRIT 30.8 % (31.2-41.9); HEMOGLOBIN 10.3 g/dL (10.9-14.3); LYMPHOCYTES # (AUTO) 2.5 K/uL (20.0-40.0); LYMPHOCYTES % (AUTO) 18.2 % (20.5-51.5); MEAN CORPUSCULAR HEMOGLOBIN 29.7 uug (24.7-32.8); MEAN CORPUSCULAR HGB CONC 34 g/dL (32.3-35.6); MEAN CORPUSCULAR VOLUME 88.6 fL (75.5-95.3); MONOCYTES # (AUTO) 0.7 K/uL (2.0-10.0); MONOCYTES % (AUTO) 5.2 % (0.0-11.0); NEUTROPHILS # (AUTO) 10.5 K/uL (1.8-8.9); NEUTROPHILS % (AUTO) 75.9 % (38.5-71.5); PLATELET COUNT (AUTO) 659 K/uL (179-408); RED BLOOD CELL COUNT(AUTO) 3.48 MIL/uL (3.63-4.92); WHITE BLOOD COUNT (AUTO) 13.9 K/uL (3.8-11.8)
[2018-06-17] MEDS: PANTOPRAZOLE SODIUM 40 MG TABLET.DR PO SCH (06:01)
--- NOTE | 2018-06-17 06:19 | NUR ---
Patient slept after admission. In no acute distress. Denies any pain or SOB. No nausea or vomiting. IV site on left wrist intact and patent. NSR on tele at 85/min. Cristobal catheter remains intact and draining via gravity. Clear yellow urine output noted on cristobal bag. Needs assessed and attended to. Safety measure maintained and call murillo within reach.
[2018-06-17 06:32] LABS: CARBON DIOXIDE 28 mmol/L (21-32); CHLORIDE 104 mmol/L (98-107); CREATININE 1.1 mg/dL (0.6-1.3); GLUCOSE 110 mg/dL (74-106); MAGNESIUM 1.8 mg/dL (1.8-2.4); PHOSPHOROUS 4.6 mg/dL (2.5-4.9); POTASSIUM 3.7 mmol/L (3.5-5.1); UREA NITROGEN, BLOOD 17 mg/dL (7-18)
[2018-06-17] MEDS: LEVOTHYROXINE SODIUM 50 MCG TABLET PO SCH (06:33)
[2018-06-17 07:20] VITALS: BP 149/71
--- NOTE | 2018-06-17 07:21 | NUR ---
Recheck BP 149/71.
[2018-06-17] MEDS: CYANOCOBALAMIN 1,000 MCG TABLET PO SCH (08:34)
[2018-06-17] MEDS: CHOLECALCIFEROL 1,000 UNIT TABLET PO SCH (08:34)
[2018-06-17] MEDS: FERROUS SULFATE 325 MG TABEC PO SCH (08:35)
[2018-06-17] MEDS ORDERED: DORZOLAMIDE 2% OPHT DROP 10 ML BOTTLE OP SCH (09:00)
[2018-06-17] MEDS ORDERED: BRINZOLAMIDE 1% OPHT DROP 10 ML BOTTLE EACHEYE SCH ×2 (09:00)
--- NOTE | 2018-06-17 09:50 | NUR ---
RECEIVED PATIENT REPORT FROM DAY SHIFT NURSE ERNST PATEL.
[2018-06-17 11:09] VITALS: BP 158/72
--- NOTE | 2018-06-17 13:30 | NUR ---
ANDERSON CORPORATE DEVELOPMENT INTERN IN ROOM EVALUATING PATIENT. CALLING SON TO VERIFY SOME INFORMATION RELATED TO CONDITION AND ELEVATED WBC.
[2018-06-17 15:00] VITALS: BP 164/74
[2018-06-17] MEDS: IV NS 1000 ML 1,000 ML IV PRN (15:11)
[2018-06-17] MEDS: CEFTRIAXONE 1 G in IV DEXTROSE 5% 50 ML IV SCH (15:20)
[2018-06-17] MEDS ORDERED: BIMATOPROST 0.01% OPHT DROP 2.5 ML BOTTLE EACHEYE SCH ×2 (18:00→21:00)
--- NOTE | 2018-06-17 19:20 | NUR ---
Received patient lying in bed. Patient AAOx2, forgetful. In no acute distress. daughter Linda on bedside. Denies any pain or SOB at this time. NSR on tele at 88/min. IV site on left wrist intact and patent. IVF infusing. Bonner catheter intact and draining via gravity. Safety measure initiated and call murillo within reach.
[2018-06-17 19:50] VITALS: BP 169/65
[2018-06-17] MEDS ORDERED: LATANOPROST OPHT DROP 2.5 ML BOTTLE OP SCH (21:00)
[2018-06-17] MEDS: LATANOPROST OPHT DROP 2.5 ML BOTTLE EACHEYE SCH (21:03)
--- NOTE | 2018-06-17 21:23 | NUR ---
Check patient BP. BP on left arm 181/75, and on right arm 184/87. patient asymptomatic. Denies any pain or headache, no change in vision. MARIBETH Muse made aware. awaiting for any new order.
--- NOTE | 2018-06-17 21:52 | NUR ---
MARIBETH Muse with order to give patient Hydralazine 10mg PO once. Will carry out order. Patient daughter present and made aware of new order as well as patient and states understanding.
[2018-06-17] MEDS ORDERED: hydrALAZINE HCL 10 MG TABLET PO SCH (22:00)
[2018-06-18] VITALS (8 sets, daily range): BP systolic 127–183; BP diastolic 44–85
[2018-06-18] MEDS: AMLODIPINE 5 MG TABLET PO SCH ×2 (01:26→08:29)
--- NOTE | 2018-06-18 01:26 | NUR ---
Patient BP still 183/77. MARIBETH Muse made aware with new order for Norvasc. Order carried out.
[2018-06-18] MEDS: IV NS 1000 ML 1,000 ML IV PRN ×2 (04:31→23:29)
[2018-06-18] MEDS: PANTOPRAZOLE SODIUM 40 MG TABLET.DR PO SCH (06:12)
--- NOTE | 2018-06-18 06:25 | NUR ---
Remains AOx1-2, forgetful. In no acute distress. Denies any pain or SOB. No nausea or vomiting. IV site on left wrist intact and patent. IVF infusing. NSR on tele with PAC's at 97/min. Bonner catheter remains intact and draining via gravity. Needs assessed and attended to. Safety measure maintained and call murillo within reach.
[2018-06-18] MEDS: LEVOTHYROXINE SODIUM 50 MCG TABLET PO SCH (06:31)
[2018-06-18 06:43] LABS: BASOPHILS # (AUTO) 0.1 K/uL (0.0-8.0); BASOPHILS % (AUTO) 0.6 % (0.0-2.0); EOSINOPHILS # (AUTO) 0.1 K/uL (0.0-0.7); EOSINOPHILS % (AUTO) 0.5 % (0.0-7.0); HEMATOCRIT 31.1 % (31.2-41.9); HEMOGLOBIN 10.5 g/dL (10.9-14.3); LYMPHOCYTES # (AUTO) 4.5 K/uL (20.0-40.0); LYMPHOCYTES % (AUTO) 30.4 % (20.5-51.5); MEAN CORPUSCULAR HEMOGLOBIN 29.6 uug (24.7-32.8); MEAN CORPUSCULAR HGB CONC 34 g/dL (32.3-35.6); MEAN CORPUSCULAR VOLUME 88.2 fL (75.5-95.3); MONOCYTES # (AUTO) 0.9 K/uL (2.0-10.0); MONOCYTES % (AUTO) 6.1 % (0.0-11.0); NEUTROPHILS # (AUTO) 9.2 K/uL (1.8-8.9); NEUTROPHILS % (AUTO) 62.4 % (38.5-71.5); PLATELET COUNT (AUTO) 645 K/uL (179-408); RED BLOOD CELL COUNT(AUTO) 3.53 MIL/uL (3.63-4.92); WHITE BLOOD COUNT (AUTO) 14.8 K/uL (3.8-11.8)
[2018-06-18 06:52] LABS: CARBON DIOXIDE 27 mmol/L (21-32); CHLORIDE 103 mmol/L (98-107); CHOLESTEROL 199 mg/dL (<200); GLUCOSE 102 mg/dL (74-106); HDL CHOLESTEROL 37 mg/dL (40-60); MAGNESIUM 1.7 mg/dL (1.8-2.4); PHOSPHOROUS 3.3 mg/dL (2.5-4.9); POTASSIUM 3.4 mmol/L (3.5-5.1); TRIGLYCERIDES 81 MG/DL (30-150); UREA NITROGEN, BLOOD 16 mg/dL (7-18)
[2018-06-18 07:06] LABS: THYROID STIMULATING HORMONE 1.727 mIU/mL (0.358-3.740)
--- NOTE | 2018-06-18 07:30 | NUR ---
patient resting in bed at this time. no signs of distress. no signs of agitation. bed rest at this time. cristobal catheter in place-patent. SR on telemetry. bed in locked/low position, side rails up x2, bed alarm on, call light within reach of patient. on RA. safety measures implemented. will continue to monitor.
[2018-06-18] MEDS: CHOLECALCIFEROL 1,000 UNIT TABLET PO SCH (08:21)
[2018-06-18] MEDS: CYANOCOBALAMIN 1,000 MCG TABLET PO SCH (08:21)
[2018-06-18] MEDS: FERROUS SULFATE 325 MG TABEC PO SCH (08:21)
[2018-06-18] MEDS ORDERED: POTASSIUM CHLORIDE 20 MEQ TAB.PRT.SR PO ONE (13:30)
[2018-06-18] MEDS: MAGNESIUM SULFATE/D5W 100 ML IV SCH ×2 (14:51→16:46)
[2018-06-18] MEDS: CEFTRIAXONE 1 G in IV DEXTROSE 5% 50 ML IV SCH (16:02)
--- NOTE | 2018-06-18 17:52 | NUR ---
patient resting comfortably in bed at this time. no signs of distress. vital signs stable. no signs of agitation or altered level of consciousness. patient has been alert/oriented x2 to 3 throughout shift. compliant and pleasant. SR on tele. Electrolytes replaced. bed alarm natural history collections curator light within reach. safety measures implemented. will continue to monitor until end of shift.
[2018-06-18] MEDS: LATANOPROST OPHT DROP 2.5 ML BOTTLE EACHEYE SCH (21:59)
[2018-06-19 00:16] VITALS: BP 177/71
[2018-06-19] MEDS ORDERED: AMLODIPINE 5 MG TABLET PO ONE (00:30)
--- NOTE | 2018-06-19 00:36 | NUR ---
PMD INFORMED OF B/P 177/71, ORDERS OBTAINED
[2018-06-19 04:10] VITALS: BP 164/76
[2018-06-19 06:13] LABS: BASOPHILS # (AUTO) 0.1 K/uL (0.0-8.0); BASOPHILS % (AUTO) 0.8 % (0.0-2.0); EOSINOPHILS # (AUTO) 0.1 K/uL (0.0-0.7); EOSINOPHILS % (AUTO) 0.8 % (0.0-7.0); HEMATOCRIT 28.6 % (31.2-41.9); HEMOGLOBIN 9.6 g/dL (10.9-14.3); LYMPHOCYTES # (AUTO) 4.5 K/uL (20.0-40.0); MEAN CORPUSCULAR HEMOGLOBIN 29.7 uug (24.7-32.8); MEAN CORPUSCULAR HGB CONC 34 g/dL (32.3-35.6); MEAN CORPUSCULAR VOLUME 88.3 fL (75.5-95.3); MONOCYTES % (AUTO) 6.3 % (0.0-11.0); NEUTROPHILS # (AUTO) 10.8 K/uL (1.8-8.9); NEUTROPHILS % (AUTO) 65.1 % (38.5-71.5); PLATELET COUNT (AUTO) 522 K/uL (179-408); RED BLOOD CELL COUNT(AUTO) 3.24 MIL/uL (3.63-4.92); WHITE BLOOD COUNT (AUTO) 16.5 K/uL (3.8-11.8)
[2018-06-19] MEDS: AMLODIPINE 5 MG TABLET PO SCH ×2 (06:20→16:51)
[2018-06-19] MEDS: PANTOPRAZOLE SODIUM 40 MG TABLET.DR PO SCH (06:20)
--- NOTE | 2018-06-19 06:30 | NUR ---
NO CHANGE IN NUERO STATUS, MEDICATED FOR HTN. REMAINS IN NSR
[2018-06-19 06:44] LABS: CARBON DIOXIDE 24 mmol/L (21-32); CHLORIDE 106 mmol/L (98-107); CREATININE 1.1 mg/dL (0.6-1.3); GLUCOSE 97 mg/dL (74-106); MAGNESIUM 2.2 mg/dL (1.8-2.4); PHOSPHOROUS 2.8 mg/dL (2.5-4.9); POTASSIUM 4.1 mmol/L (3.5-5.1); UREA NITROGEN, BLOOD 17 mg/dL (7-18)
[2018-06-19] MEDS: LEVOTHYROXINE SODIUM 50 MCG TABLET PO SCH (06:48)
[2018-06-19 08:25] VITALS: BP 155/69
[2018-06-19] MEDS: CYANOCOBALAMIN 1,000 MCG TABLET PO SCH (08:26)
[2018-06-19] MEDS: CHOLECALCIFEROL 1,000 UNIT TABLET PO SCH (08:26)
[2018-06-19] MEDS: FERROUS SULFATE 325 MG TABEC PO SCH (08:26)
--- NOTE | 2018-06-19 09:33 | NUR ---
resting comfortably in bed. stable condition. continues to be hypertensive. tolerating diet well. no signs of distress. SR on tele. bed alarm on, call light within reach. will continue to monitor throughout shift.
[2018-06-19 11:03] VITALS: BP 134/67
[2018-06-19] MEDS ORDERED: METO25TA6 PO (13:38)
[2018-06-19] MEDS ORDERED: AMLO5TAB9 PO (13:38)
[2018-06-19] MEDS ORDERED: MAGN400O6 PO (13:38)
[2018-06-19] MEDS ORDERED: FERR325T28 PO (13:38)
[2018-06-19 15:20] VITALS: BP 114/60
[2018-06-19] MEDS: CEFTRIAXONE 1 G in IV DEXTROSE 5% 50 ML IV SCH (15:40)
[2018-06-19 16:51] VITALS: BP 160/76
--- NOTE | 2018-06-19 17:00 | NUR ---
PATIENT DISCHARGED AT THIS TIME IN STABLE CONDITION. NO SIGNS OF DISTRESS. BLOOD PRESSURE ELEVATED AT 160/76. ALL OVER VITAL SIGNS WNL. CALLED FACILITY TO ENSURE THAT IT WAS OKAY TO TRANSFER PATIENT. FACILITY VERBALIZED THAT IT IS OKAY TO TRANSFER PATIENT. ADMINISTERED NORVASC 5 MG PO PER MD ORDERS PRIOR TO TRANSFERRING PATIENT. THE NORVASC ADMINISTERED IS THE DOSE THAT IS SCHEDULED FOR THE NEXT DAY AT 0900. ID-BAND TAKEN OUT. TELEMETRY RETURNED. IV-DISCONNECTED. DISCHARGE PACKET COMPLETED, COPY MADE FOR PATIENT/FACILITY. PATIENT DISCHARGED FROM [facility] SAFELY WITH AMBULANCE. [facility]
== END 2018-06-19 17:00 | DRG 77 ==
LOC: ER 22:27 → TELE 06-17 01:48
PROVIDERS: ATTEND Nurse Practitioner Acute Care
DX: I67.4 Hypertensive encephalopathy (principal); G92 Toxic encephalopathy; E43 Unspecified severe protein-calorie malnutrition; Z68.1 Body mass index [BMI] 19.9 or less, adult; I16.1 Hypertensive emergency; T40.4X5A Adverse effect of other synthetic narcotics, initial encounter; Y92.019 Unspecified place in single-family (private) house as the place of occurrence of the external cause; T42.8X5A Adverse effect of antiparkinsonism drugs and other central muscle-tone depressants, initial encounter; M48.56XD Collapsed vertebra, not elsewhere classified, lumbar region, subsequent encounter for fracture with routine healing; Z90.49 Acquired absence of other specified parts of digestive tract; E87.6 Hypokalemia; D72.829 Elevated white blood cell count, unspecified; Z79.899 Other long term (current) drug therapy; I11.9 Hypertensive heart disease without heart failure; R29.701 NIHSS score 1; E03.9 Hypothyroidism, unspecified; Z79.890 Hormone replacement therapy; E05.90 Thyrotoxicosis, unspecified without thyrotoxic crisis or storm
CPT/HCPCS: 36415; 70030-TC; 70450; 71045; 80307; 83605; 83735; 84100; 84443; 85025; 85730; 87040; 87086; 93005; 97116; 97530; A4663; G0378; G0480; G0480-TC; J0360; J0696; J3475; J7030; J7060

== ENCOUNTER 2018-09-16 09:17 | Inpatient (IN) | payer MEDICARE, BC ==
[~2018-09-16] VITALS: Ht 152.4 cm; Wt 38.6 kg
[~2018-09-16 09:17] MED LIST changes: +AMLO5TAB9 PO; -AMOX-427 PO; +FERR325T28 PO; +MAGN400O6 PO; +METO25TA6 PO
[2018-09-16] MEDS ORDERED: IV NORMAL SALINE 1000 ML BAG IV ONE (09:45)
[2018-09-16] MEDS ORDERED: ASPI81TA31 PO (09:46)
[2018-09-16] MEDS ORDERED: AMLO10TA4 PO (09:46)
[2018-09-16] MEDS ORDERED: SERT25TA PO (09:46)
[2018-09-16 09:55] LABS: BASOPHILS # (AUTO) 0.2 K/uL (0.0-8.0); EOSINOPHILS % (AUTO) 0.2 % (0.0-7.0); HEMATOCRIT 25.3 % (31.2-41.9); HEMOGLOBIN 8.2 g/dL (10.9-14.3); LYMPHOCYTES # (AUTO) 2.5 K/uL (20.0-40.0); LYMPHOCYTES % (AUTO) 15.4 % (20.5-51.5); MEAN CORPUSCULAR HEMOGLOBIN 28.5 uug (24.7-32.8); MEAN CORPUSCULAR HGB CONC 32 g/dL (32.3-35.6); MONOCYTES # (AUTO) 0.9 K/uL (2.0-10.0); MONOCYTES % (AUTO) 5.5 % (0.0-11.0); NEUTROPHILS # (AUTO) 12.8 K/uL (1.8-8.9); NEUTROPHILS % (AUTO) 77.9 % (38.5-71.5); PLATELET COUNT (AUTO) 846 K/uL (179-408); RED BLOOD CELL COUNT(AUTO) 2.88 MIL/uL (3.63-4.92); WHITE BLOOD COUNT (AUTO) 16.4 K/uL (3.8-11.8)
[2018-09-16 10:09] LABS: ALANINE AMINOTRANSFERASE 36 U/L (14-59); ALKALINE PHOSPHATASE 491 U/L (50-136); ASPARTATE AMINOTRANSFERASE 38 U/L (15-37); BILIRUBIN,DIRECT 0.2 mg/dL (0.0-0.2); BILIRUBIN,TOTAL 0.3 mg/dL (0.2-1.0); CARBON DIOXIDE 24 mmol/L (21-32); CHLORIDE 100 mmol/L (98-107); CREATININE 0.9 mg/dL (0.6-1.3); GLUCOSE 104 mg/dL (74-106); POTASSIUM 2.9 mmol/L (3.5-5.1); TOTAL PROTEIN, SERUM 6.7 g/dL (6.4-8.2); UREA NITROGEN, BLOOD 15 mg/dL (7-18)
[2018-09-16 10:17] LABS: THYROID STIMULATING HORMONE 2.763 mIU/mL (0.358-3.740)
[2018-09-16] MEDS ORDERED: CEFTRIAXONE 1 G in IV DEXTROSE 5% 50 ML IV ONE (10:45)
[2018-09-16 11:04] LABS: *BILIRUBIN,URIN NEGATIVE (NEGATIVE); *CLARITY,URINE SLIGHTLY CLOUDY (CLEAR); *COLOR,URINE YELLOW (YELLOW); *KETONES,URINE NEGATIVE (NEGATIVE); *UROBILINOGEN,URINE 0.2 E.U./dl (NORMAL); LEUKOCYTE ESTERASE ,URINE NEGATIVE (NEGATIVE); NITRITE, URINE NEGATIVE (NEGATIVE); PH,URINE 6.5 (5.0-8.0); UGLUCOSE NEGATIVE (NEGATIVE)
[2018-09-16 11:06] LABS: *BLOOD, URINE NEGATIVE (NEGATIVE)
[2018-09-16 11:09] LABS: BACTERIA,URINE FEW /HPF (NONE SEEN); RBC,URINE NONE SEEN /HPF (0-3); SQUAMOUS EPITHELIAL CELL,UR FEW /HPF (NONE SEEN); WBC,URINE 0-3 /HPF (0-3)
[2018-09-16] MEDS ORDERED: CEFTRIAXONE 1 G VIAL ONE (11:10)
[2018-09-16] MEDS ORDERED: POTASSIUM CHLORIDE 100 ML ONE (11:11)
[2018-09-16] MEDS ORDERED: ACETAMINOPHEN 325 MG TABLET PO PRN (11:30)
[2018-09-16] MEDS ORDERED: ONDANSETRON 4 MG/2 ML VIAL IV PRN (11:30)
[2018-09-16] MEDS ORDERED: MAGNESIUM HYDROXIDE 30 ML LIQUID UDC PO PRN (11:30)
[2018-09-16] MEDS ORDERED: Z GUARD REMEDY PASTE 57 GM TUBE TOP PRN (11:30)
[2018-09-16] MEDS ORDERED: HYDROCODONE/APAP 5-325MG TABLET PO PRN (11:30)
[2018-09-16] MEDS: POTASSIUM CHLORIDE 50 ML IV SCH ×2 (11:33→12:42)
[2018-09-16 13:55] VITALS: BP 143/60
[2018-09-16] MEDS: IV NS 1000 ML 1,000 ML IV PRN (16:52)
[2018-09-16] MEDS: BRINZOLAMIDE 1% OPHT DROP 10 ML BOTTLE EACHEYE SCH (18:29)
[2018-09-16] MEDS: BIMATOPROST 0.01% OPHT DROP 2.5 ML BOTTLE EACHEYE SCH (18:29)
[2018-09-16 20:31] VITALS: BP 107/53
[2018-09-17 00:15] VITALS: BP 110/53
[2018-09-17] MEDS: LEVOTHYROXINE SODIUM 50 MCG TABLET PO SCH (06:05)
[2018-09-17 06:27] LABS: BASOPHILS # (AUTO) 0.2 K/uL (0.0-8.0); BASOPHILS % (AUTO) 1.1 % (0.0-2.0); EOSINOPHILS # (AUTO) 0.1 K/uL (0.0-0.7); EOSINOPHILS % (AUTO) 0.3 % (0.0-7.0); HEMATOCRIT 21.9 % (31.2-41.9); LYMPHOCYTES # (AUTO) 3.8 K/uL (20.0-40.0); MEAN CORPUSCULAR HEMOGLOBIN 28.4 uug (24.7-32.8); MEAN CORPUSCULAR HGB CONC 32 g/dL (32.3-35.6); MEAN CORPUSCULAR VOLUME 88.9 fL (75.5-95.3); MONOCYTES # (AUTO) 0.7 K/uL (2.0-10.0); MONOCYTES % (AUTO) 4.7 % (0.0-11.0); NEUTROPHILS # (AUTO) 10.9 K/uL (1.8-8.9); NEUTROPHILS % (AUTO) 69.9 % (38.5-71.5); PLATELET COUNT (AUTO) 734 K/uL (179-408); WHITE BLOOD COUNT (AUTO) 15.6 K/uL (3.8-11.8)
[2018-09-17 06:28] VITALS: BP 142/68
[2018-09-17 06:59] LABS: RED BLOOD CELL COUNT(AUTO) 2.46 MIL/uL (3.63-4.92)
[2018-09-17 07:00] LABS: ALANINE AMINOTRANSFERASE 28 U/L (14-59); ALKALINE PHOSPHATASE 413 U/L (50-136); ASPARTATE AMINOTRANSFERASE 15 U/L (15-37); BILIRUBIN,TOTAL 0.3 mg/dL (0.2-1.0); CHLORIDE 101 mmol/L (98-107); CHOLESTEROL 151 mg/dL (<200); CREATININE 0.9 mg/dL (0.6-1.3); GLUCOSE 78 mg/dL (74-106); HDL CHOLESTEROL 23 mg/dL (40-60); MAGNESIUM 1.6 mg/dL (1.8-2.4); PHOSPHOROUS 3.4 mg/dL (2.5-4.9); POTASSIUM 3.3 mmol/L (3.5-5.1); TOTAL PROTEIN, SERUM 6.2 g/dL (6.4-8.2); TRIGLYCERIDES 123 MG/DL (30-150); UREA NITROGEN, BLOOD 11 mg/dL (7-18)
[2018-09-17 07:04] LABS: CARBON DIOXIDE 25 mmol/L (21-32)
[2018-09-17] MEDS: BRINZOLAMIDE 1% OPHT DROP 10 ML BOTTLE EACHEYE SCH ×2 (08:20→17:28)
[2018-09-17] MEDS: CALCIUM CARB/VITAMIN D 500MG-200UNITS TABLET PO SCH (08:22)
[2018-09-17] MEDS: MULTIVITAMINS,THERAPEUTIC TABLET PO SCH (08:22)
[2018-09-17] MEDS: CHOLECALCIFEROL 1,000 UNIT TABLET PO SCH (08:22)
[2018-09-17] MEDS: CYANOCOBALAMIN 1,000 MCG TABLET PO SCH (08:22)
[2018-09-17] MEDS: SERTRALINE HCL 50 MG TABLET PO SCH (08:26)
[2018-09-17] MEDS: IV NS 1000 ML 1,000 ML IV PRN (08:28)
[2018-09-17] MEDS ORDERED: Medication Not On Formulary EA (Sertraline Hcl (Zoloft) 25 MG) PO SCH (09:00)
[2018-09-17] MEDS ORDERED: CALCIUM PLUS D PO SCH (09:00)
[2018-09-17] MEDS ORDERED: ASPIRIN 81 MG TAB.CHEW PO SCH (09:00)
[2018-09-17] MEDS ORDERED: Medication Not On Formulary EA (Multivitamins (Multivitamin) 1 EACH) PO SCH (09:00)
[2018-09-17 11:36] VITALS: BP 146/53
[2018-09-17] MEDS: CEFTRIAXONE 1 G in IV DEXTROSE 5% 50 ML IV SCH (12:11)
[2018-09-17] MEDS ORDERED: POTASSIUM CHLORIDE 20 MEQ POWDER PACKET PO ONE (12:45)
[2018-09-17] MEDS: MAGNESIUM SULFATE/D5W 100 ML IV SCH ×2 (14:30→15:49)
[2018-09-17 15:29] VITALS: BP 138/62
[2018-09-17] MEDS: BIMATOPROST 0.01% OPHT DROP 2.5 ML BOTTLE EACHEYE SCH (17:31)
[2018-09-17 20:04] VITALS: BP 153/66
[2018-09-18] MEDS: IV NS 1000 ML 1,000 ML IV PRN ×2 (00:02→11:42)
[2018-09-18 00:21] VITALS: BP 139/58
[2018-09-18 04:35] VITALS: BP 140/61
[2018-09-18] MEDS: LEVOTHYROXINE SODIUM 50 MCG TABLET PO SCH (06:39)
[2018-09-18 08:27] LABS: LYMPHOCYTES # (AUTO) 3.5 K/uL (20.0-40.0); WHITE BLOOD COUNT (AUTO) 16.5 K/uL (3.8-11.8)
[2018-09-18] MEDS: CYANOCOBALAMIN 1,000 MCG TABLET PO SCH (08:29)
[2018-09-18] MEDS: CALCIUM CARB/VITAMIN D 500MG-200UNITS TABLET PO SCH (08:29)
[2018-09-18] MEDS: MULTIVITAMINS,THERAPEUTIC TABLET PO SCH (08:29)
[2018-09-18] MEDS: CHOLECALCIFEROL 1,000 UNIT TABLET PO SCH (08:29)
[2018-09-18] MEDS: SERTRALINE HCL 50 MG TABLET PO SCH (08:30)
[2018-09-18] MEDS: BRINZOLAMIDE 1% OPHT DROP 10 ML BOTTLE EACHEYE SCH ×2 (08:30→17:25)
[2018-09-18 08:33] LABS: BASOPHILS # (AUTO) 0.2 K/uL (0.0-8.0); BASOPHILS % (AUTO) 1.3 % (0.0-2.0); CARBON DIOXIDE 25 mmol/L (21-32); CHLORIDE 102 mmol/L (98-107); CREATININE 0.7 mg/dL (0.6-1.3); EOSINOPHILS # (AUTO) 0.1 K/uL (0.0-0.7); EOSINOPHILS % (AUTO) 0.3 % (0.0-7.0); GLUCOSE 83 mg/dL (74-106); LYMPHOCYTES % (AUTO) 21.2 % (20.5-51.5); MEAN CORPUSCULAR HEMOGLOBIN 28.2 uug (24.7-32.8); MEAN CORPUSCULAR HGB CONC 32 g/dL (32.3-35.6); MEAN CORPUSCULAR VOLUME 89.1 fL (75.5-95.3); MONOCYTES % (AUTO) 6.1 % (0.0-11.0); NEUTROPHILS # (AUTO) 11.7 K/uL (1.8-8.9); NEUTROPHILS % (AUTO) 71.1 % (38.5-71.5); PLATELET COUNT (AUTO) 717 K/uL (179-408); POTASSIUM 3.6 mmol/L (3.5-5.1); UREA NITROGEN, BLOOD 9 mg/dL (7-18)
[2018-09-18 08:35] LABS: RED BLOOD CELL COUNT(AUTO) 2.48 MIL/uL (3.63-4.92)
[2018-09-18 08:42] LABS: HEMATOCRIT 22.1 % (31.2-41.9)
[2018-09-18] MEDS: CEFTRIAXONE 1 G in IV DEXTROSE 5% 50 ML IV SCH (11:34)
[2018-09-18 11:41] VITALS: BP 157/57
[2018-09-18] MEDS ORDERED: MINERAL OIL/PETROLATUM,WHITE 57 GM TUBE TOP PRN (12:30)
[2018-09-18 15:20] VITALS: BP 136/54
[2018-09-18] MEDS: BIMATOPROST 0.01% OPHT DROP 2.5 ML BOTTLE EACHEYE SCH (17:25)
[2018-09-18 20:10] VITALS: BP 139/58
[2018-09-18] MEDS ORDERED: MAGNESIUM HYDROXIDE 30 ML LIQUID UDC PO PRN (22:00)
[2018-09-19] VITALS (7 sets, daily range): BP systolic 118–169; BP diastolic 57–94
[2018-09-19] MEDS: IV NS 1000 ML 1,000 ML IV PRN ×2 (01:58→21:13)
[2018-09-19] MEDS: LEVOTHYROXINE SODIUM 50 MCG TABLET PO SCH ×2 (06:22→10:44)
[2018-09-19] MEDS: SERTRALINE HCL 50 MG TABLET PO SCH (10:44)
[2018-09-19] MEDS: MULTIVITAMINS,THERAPEUTIC TABLET PO SCH (10:44)
[2018-09-19] MEDS: CHOLECALCIFEROL 1,000 UNIT TABLET PO SCH (10:44)
[2018-09-19] MEDS: CYANOCOBALAMIN 1,000 MCG TABLET PO SCH (10:45)
[2018-09-19] MEDS: CALCIUM CARB/VITAMIN D 500MG-200UNITS TABLET PO SCH (10:45)
[2018-09-19] MEDS: CEFTRIAXONE 1 G in IV DEXTROSE 5% 50 ML IV SCH (10:48)
[2018-09-19] MEDS: BRINZOLAMIDE 1% OPHT DROP 10 ML BOTTLE EACHEYE SCH ×2 (10:48→17:16)
[2018-09-19 17:17] LABS: BASOPHILS # (AUTO) 0.1 K/uL (0.0-8.0); BASOPHILS % (AUTO) 0.5 % (0.0-2.0); EOSINOPHILS % (AUTO) 0.1 % (0.0-7.0); HEMATOCRIT 29.1 % (31.2-41.9); HEMOGLOBIN 9.2 g/dL (10.9-14.3); LYMPHOCYTES # (AUTO) 4.5 K/uL (20.0-40.0); LYMPHOCYTES % (AUTO) 19.9 % (20.5-51.5); MEAN CORPUSCULAR HEMOGLOBIN 27.7 uug (24.7-32.8); MEAN CORPUSCULAR HGB CONC 32 g/dL (32.3-35.6); MEAN CORPUSCULAR VOLUME 87.9 fL (75.5-95.3); MONOCYTES # (AUTO) 1.2 K/uL (2.0-10.0); MONOCYTES % (AUTO) 5.4 % (0.0-11.0); NEUTROPHILS # (AUTO) 16.6 K/uL (1.8-8.9); NEUTROPHILS % (AUTO) 74.1 % (38.5-71.5); PLATELET COUNT (AUTO) 801 K/uL (179-408); RED BLOOD CELL COUNT(AUTO) 3.31 MIL/uL (3.63-4.92); WHITE BLOOD COUNT (AUTO) 22.4 K/uL (3.8-11.8)
[2018-09-19 17:26] LABS: BAND % (MANUAL) 2 % (0-10); LYMPHOCYTES % (MANUAL) 18 % (20-40); MONOCYTES % (MANUAL) 4 % (2-10)
[2018-09-19 17:27] LABS: NEUTROPHILS % (MANUAL) 76 % (42-75)
[2018-09-19] MEDS: BIMATOPROST 0.01% OPHT DROP 2.5 ML BOTTLE EACHEYE SCH (17:56)
[2018-09-20 04:58] VITALS: BP 164/84
[2018-09-20] MEDS ORDERED: NORMAL SALINE FLUSH 10 ML DISP.SYRIN ONE (08:17)
[2018-09-20] MEDS ORDERED: IV NORMAL SALINE 250 ML IV ONE (08:17)
[2018-09-20] MEDS ORDERED: SWABABLE VALVE TRANSFER SET EA MC ONE (08:17)
[2018-09-20] MEDS ORDERED: IOHEXOL 300MG/ML 100 ML INFUS..BTL ONE (08:17)
[2018-09-20] MEDS: BRINZOLAMIDE 1% OPHT DROP 10 ML BOTTLE EACHEYE SCH ×2 (09:23→18:19)
[2018-09-20] MEDS: CHOLECALCIFEROL 1,000 UNIT TABLET PO SCH (09:25)
[2018-09-20] MEDS: CYANOCOBALAMIN 1,000 MCG TABLET PO SCH (09:25)
[2018-09-20] MEDS: CALCIUM CARB/VITAMIN D 500MG-200UNITS TABLET PO SCH (09:25)
[2018-09-20] MEDS: MULTIVITAMINS,THERAPEUTIC TABLET PO SCH (09:26)
[2018-09-20] MEDS: SERTRALINE HCL 50 MG TABLET PO SCH (09:26)
[2018-09-20] MEDS: AMLODIPINE 5 MG TABLET PO SCH (09:27)
[2018-09-20 10:01] LABS: BASOPHILS # (AUTO) 0.1 K/uL (0.0-8.0); BASOPHILS % (AUTO) 0.8 % (0.0-2.0); EOSINOPHILS % (AUTO) 0.2 % (0.0-7.0); HEMATOCRIT 27.5 % (31.2-41.9); LYMPHOCYTES # (AUTO) 2.3 K/uL (20.0-40.0); MEAN CORPUSCULAR HEMOGLOBIN 28.6 uug (24.7-32.8); MEAN CORPUSCULAR HGB CONC 33 g/dL (32.3-35.6); MEAN CORPUSCULAR VOLUME 87.4 fL (75.5-95.3); MONOCYTES # (AUTO) 0.9 K/uL (2.0-10.0); MONOCYTES % (AUTO) 5.6 % (0.0-11.0); NEUTROPHILS # (AUTO) 12.2 K/uL (1.8-8.9); NEUTROPHILS % (AUTO) 78.4 % (38.5-71.5); PLATELET COUNT (AUTO) 711 K/uL (179-408); RED BLOOD CELL COUNT(AUTO) 3.14 MIL/uL (3.63-4.92); WHITE BLOOD COUNT (AUTO) 15.5 K/uL (3.8-11.8)
[2018-09-20 11:17] VITALS: BP 134/50
[2018-09-20] MEDS: CEFTRIAXONE 1 G in IV DEXTROSE 5% 50 ML IV SCH (12:14)
[2018-09-20] MEDS: IV NS 1000 ML 1,000 ML IV PRN (14:52)
[2018-09-20 15:20] VITALS: BP 133/55
[2018-09-20] MEDS: BIMATOPROST 0.01% OPHT DROP 2.5 ML BOTTLE EACHEYE SCH (18:18)
[2018-09-20 20:21] VITALS: BP 147/62
[2018-09-21] MEDS: IV NS 1000 ML 1,000 ML IV PRN (03:06)
[2018-09-21 05:35] VITALS: BP 156/63
[2018-09-21] MEDS: LEVOTHYROXINE SODIUM 50 MCG TABLET PO SCH (06:34)
[2018-09-21] MEDS: CHOLECALCIFEROL 1,000 UNIT TABLET PO SCH (08:22)
[2018-09-21] MEDS: SERTRALINE HCL 50 MG TABLET PO SCH (08:23)
[2018-09-21] MEDS: CYANOCOBALAMIN 1,000 MCG TABLET PO SCH (08:23)
[2018-09-21] MEDS: BRINZOLAMIDE 1% OPHT DROP 10 ML BOTTLE EACHEYE SCH ×2 (08:23→17:09)
[2018-09-21] MEDS: MULTIVITAMINS,THERAPEUTIC TABLET PO SCH (08:23)
[2018-09-21] MEDS: CALCIUM CARB/VITAMIN D 500MG-200UNITS TABLET PO SCH (08:23)
[2018-09-21] MEDS: AMLODIPINE 5 MG TABLET PO SCH (08:27)
[2018-09-21] MEDS: CEFTRIAXONE 1 G in IV DEXTROSE 5% 50 ML IV SCH (10:42)
[2018-09-21 11:11] VITALS: BP 140/60
[2018-09-21 15:18] VITALS: BP 145/70
== END 2018-09-21 18:45 | disposition home health service (06) | DRG 304 ==
LOC: ER 09:17 → TELE3 11:53 → MEDSURG3 09-18 12:17
PROVIDERS: ADMIT Internal Medicine; ATTEND Internal Medicine
PROC: 30233P1 Transfusion of Nonautologous Frozen Red Cells into Peripheral Vein, Percutaneous Approach (ICD-10-PCS; principal; 2018-09-19)
DX: I16.0 Hypertensive urgency (principal); E43 Unspecified severe protein-calorie malnutrition; I67.4 Hypertensive encephalopathy; Z68.1 Body mass index [BMI] 19.9 or less, adult; J90 Pleural effusion, not elsewhere classified; C64.2 Malignant neoplasm of left kidney, except renal pelvis; E87.6 Hypokalemia; I11.9 Hypertensive heart disease without heart failure; E05.90 Thyrotoxicosis, unspecified without thyrotoxic crisis or storm; Z87.440 Personal history of urinary (tract) infections; Z88.5 Allergy status to narcotic agent; Z88.2 Allergy status to sulfonamides; Z79.82 Long term (current) use of aspirin; Z79.899 Other long term (current) drug therapy; M48.56XD Collapsed vertebra, not elsewhere classified, lumbar region, subsequent encounter for fracture with routine healing; E86.0 Dehydration; D64.9 Anemia, unspecified; M85.80 Other specified disorders of bone density and structure, unspecified site; E03.9 Hypothyroidism, unspecified; F03.90 Unspecified dementia, unspecified severity, without behavioral disturbance, psychotic disturbance, mood disturbance, and anxiety; D72.829 Elevated white blood cell count, unspecified; Z79.890 Hormone replacement therapy; D63.0 Anemia in neoplastic disease
CPT/HCPCS: 36415; 70030-TC; 71045; 83605; 83735; 84100; 84443; 85025; 85730; 86850; 86900; 86901; 86920; 87040; 87086; 92526; 92610; 93005; 97110; 97530; A4663; C1758; G0378; J0696; J3475; J3480; J3490; J7030; J7042; J7050; J7060; P9016-BL; P9021; Q9967